=== PATIENT | male | born 1960 | race Caucasian/White ===

== ENCOUNTER 2021-02-13 09:06 | Outpatient (CLI) | payer OTHER ==
[2021-02-13] MEDS ORDERED: Magnevist 469MG/ML 20 ML VIAL ONE (15:03)
== END 2021-02-13 09:07 | disposition home or self-care (01) ==
LOC: BICMRI 09:06
PROVIDERS: ATTEND Surgery
DX: I63.9 Cerebral infarction, unspecified (principal)
CPT/HCPCS: 70553; 82565; A9579

== ENCOUNTER 2021-03-20 08:46 | Day surgery (SDC) | payer OTHER ==
[2021-03-20] MEDS ORDERED: Iopamidol 370 76% 50 ML VIAL FS ONE (09:31)
[2021-03-20] MEDS ORDERED: Iopamidol 370 76% 100 ML VIAL ONE (09:31)
[2021-03-20 09:58] LABS: Anion Gap 14 mmol/L (10-20); BUN (Urea Nitrogen) 16 mg/dL (8.4-25.7); Calc. Creatinine Clearance 0 mL/min (70-130); Calcium 9.3 mg/dL (7.8-10.44); Carbon Dioxide 22 mmol/L (23-31); Chloride 107 mmol/L (98-107); Glucose 104 mg/dL (80-115); Potassium 4.7 mmol/L (3.5-5.1); Sodium 138 mmol/L (136-145)
[2021-03-20] MEDS ORDERED: Heparin 10,000 UNITS/ 10 ML VIAL ONE (10:52)
[2021-03-20] MEDS ORDERED: Lidocaine 1% (PF) 30 ML VIAL ONE (10:53)
== END 2021-03-20 16:05 | disposition home or self-care (01) ==
LOC: SDC 08:46
PROVIDERS: ATTEND Neurological Surgery
PROC: B31G1ZZ Fluoroscopy of Bilateral Vertebral Arteries using Low Osmolar Contrast (ICD-10-PCS; principal; 2021-03-20)
PROC: B3151ZZ Fluoroscopy of Bilateral Common Carotid Arteries using Low Osmolar Contrast (ICD-10-PCS; principal; 2021-03-20)
DX: I63.9 Cerebral infarction, unspecified (principal); H93.A9 Pulsatile tinnitus, unspecified ear; Z79.01 Long term (current) use of anticoagulants; Z79.82 Long term (current) use of aspirin; Z79.899 Other long term (current) drug therapy
CPT/HCPCS: 36215; 36216; 36217; 36218; 36222; 36226; 80048; J1644; J2001; Q9967

== ENCOUNTER 2021-07-19 13:39 | Outpatient (CLI) | payer OTHER | END 2021-07-19 13:40 | disposition home or self-care (01) | LOC: TBSIIMAG 13:39 | PROVIDERS: ATTEND Surgery | DX: M79.601 Pain in right arm (principal); M47.812 Spondylosis without myelopathy or radiculopathy, cervical region | CPT/HCPCS: 72050 ==